=== PATIENT | female | born 1975 | race Caucasian/White ===

== ENCOUNTER → 2017-07-15 | Outpatient (CLI) | payer OTHER ==
--- NOTE | 2017-07-15 16:27 | US ---
EXAMINATION TYPE: US venous doppler duplex LE LT DATE OF EXAM: 07/15/2017 12:24 PM COMPARISON: NONE CLINICAL HISTORY: M79.662 Pain in Left Lower Limb. knee surgery 10 years ago SIDE PERFORMED: left TECHNIQUE: The lower extremity deep venous system is examined utilizing real time linear array sonog josé with graded compression, doppler sonography and color-flow sonography. VESSELS IMAGED: External Iliac Vein (EIV) Common Femoral Vein Deep Femoral Vein Greater Saphenous Vein * Femoral Vein Popliteal Vein Small Saphenous Vein * Proximal Calf Veins (* superficial vessels) Left Leg: Negative for DVT IMPRESSION: 1. Left lower extremity negative for deep venous thrombosis
== END | disposition home or self-care (01) ==
LOC: RADUSWWP 11:47
PROVIDERS: ATTEND Family Medicine
DX: M79.662 Pain in left lower leg (principal)

== ENCOUNTER 2018-04-11 21:26 | Emergency (ER) | payer OTHER ==
[2018-04-11] MEDS ORDERED: HYDROcodone/APAP 5-325MG 1 EACH TAB PO STA (22:21)
--- NOTE | 2018-04-11 22:42 | XR ---
EXAMINATION TYPE: XR foot complete RT DATE OF EXAM: 04/11/2018 COMPARISON: 06/02/2015 HISTORY: Pain TECHNIQUE: 3 views FINDINGS: There is acute oblique fracture of the midshaft of the proximal phalanx of the little toe. There is mild valgus angulation. There is plantar and Achilles calcaneal spur formation. Metatarsals are intact. There is no dislocation. IMPRESSION: Acute fracture of the proximal phalanx of the little toe right foot.
--- NOTE | 2018-04-11 23:29 | ED ---
General Adult HPI - General Chief complaint: Extremity Injury, Lower Stated complaint: Toe Injury Time Seen by Provider: 04/11/18 22:12 Source: patient, RN notes reviewed Mode of arrival: wheelchair Limitations: no limitations - History of Present Illness Initial comments: 43-year-old female presents to the emergency department for a chief complaint of right fifth toe pain times one hour. Patient was walking in her bedroom when she hit her fifth toe on the leg of the bed. Patient states she immediately felt pain and noticed a disfigurement of her right fifth toe. Patient denies any other pain in her foot besides her heel which she states comes and goes chronically due to rheumatoid arthritis. She denies falling or hitting her head. She denies any other leg pain.Patient has no other complaints at this time including shortness of breath, chest pain, abdominal pain, nausea or vomiting, headache, or visual changes. - Related Data Home Medications Medication Instructions Recorded Confirmed Hydrocodone/Acetaminophen [[place] 1 tab PO TID PRN 06/11/14 03/19/16 5-325] Levothyroxine Sodium [Synthroid] 137 mcg PO DAILY 01/20/16 03/19/16 Previous Rx's Medication Instructions Recorded HYDROcodone/APAP 5-325MG [[place] 1 tab PO Q4HR PRN #30 tab 03/21/16 5-325] Hydrocodone/Acetaminophen [[place] 1 - 2 each PO Q4HR PRN #30 tab 03/21/16 5-325] Allergies Allergy/AdvReac Type Severity Reaction Status Date / Time codeine phosphate Allergy Rash/Hives Verified 04/11/18 21:46 [From Tylenol-Codeine #3] meperidine HCl [From Demerol] AdvReac Nausea & Verified 04/11/18 21:46 Vomiting Review of Systems ROS Statement: Those systems with pertinent positive or pertinent negative responses have been documented in the HPI. ROS Other: All systems not noted in ROS Statement are negative. Past Medical History Past Medical History: Cancer, Rheumatoid Arthritis (RA), Thyroid Disorder Additional Past Medical History / Comment(s): thyroid cancer History of Any Multi-Drug Resistant Organisms: None Reported Additional Past Surgical History / Comment(s): thyroidectomy Past Anesthesia/Blood Transfusion Reactions: No Reported Reaction Past Psychological History: No Psychological Hx Reported Smoking Status: Never smoker Past Alcohol Use History: None Reported Past Drug Use History: None Reported - Past Family History Father Family Medical History: Congestive Heart Failure (CHF), Diabetes Mellitus Additional Family Medical History / Comment(s): gallbladder disease General Exam Limitations: no limitations General appearance: alert, in no apparent distress Head exam: Present: atraumatic, normocephalic, normal inspection Eye exam: Present: normal appearance, PERRL, EOMI. Absent: scleral icterus, conjunctival injection, periorbital swelling ENT exam: Present: normal exam, mucous membranes moist Neck exam: Present: normal inspection. Absent: tenderness, meningismus, lymphadenopathy Respiratory exam: Present: normal lung sounds bilaterally. Absent: respiratory distress, wheezes, rales, rhonchi, stridor Cardiovascular Exam: Present: regular rate, normal rhythm, normal heart sounds. Absent: systolic murmur, diastolic murmur, rubs, gallop, clicks Extremities exam: Present: tenderness (Tenderness to the right fifth toe), normal capillary refill (Capillary refill less than 2 seconds in the right fifth digit. Dorsal pedis pulse 2+ in the right foot), other (Patient has notable deformity of right fifth digit as it is laterally displaced.). Absent: full ROM (Patient unable to move right fifth toe at this time), pedal edema, joint swelling Neurological exam: Present: alert, oriented X3, CN II-XII intact Psychiatric exam: Present: normal affect, normal mood Course Vital Signs 04/11/18 21:44 Temperature 98.1 F Pulse Rate 99 Respiratory 18 Rate Blood Pressure 126/77 O2 Sat by Pulse 99 Oximetry Procedures - Orthopedic Fracture Reduction Fracture #1 Consent Obtained: verbal consent Side: right Fracture Reduction Location: toe (Fifth toe) Analgesia: digital block Technique: direct manipulation Post Reduction X-rays Demonstrate: anatomical reduction Post-Reduction Neuro Exam: intact Post-Reduction Vascular Exam: intact Splint Applied: Yes (Luanne tape) Patient Tolerated Procedure: well, no complications Medical Decision Making - Medical Decision Making 43-year-old female presents to the emergency department for chief complaint of right fifth toe injury occurring about an hour ago. Patient accidentally hit her toe against the leg of a bed. Neurovascular intact. Patient unable to move the toe due to pain. Patient was given an [place] in the emergency department which she receives at home. X-ray was ordered which showed Acute fracture of the proximal phalanx of the little toe right foot with mild valgus angulation. There is plantar and Achilles calcaneal spur forming. Digital block was performed with lidocaine and toe was reduced with traction. Neurovascular intact post reduction. X-ray was reviewed by myself and Dr. Carrera and toe is sufficiently reduced. Right fifth toe was luanne taped to the right fourth toe. Patient was given fracture shoe. Patient will continue to do this luanne taping for the next few weeks. Patient was given paper tape. She will follow up with orthopedics in the next few days. Educated on rest ice compress elevate. She will continue her at home medications as well as Motrin. She'll return to the emergency Department if she has any worsening symptoms. Disposition Clinical Impression: Fracture of toe Disposition: HOME SELF-CARE Condition: Good Instructions: Toe Fracture in Children (ED) Additional Instructions: Please keep toe was luanne taped for the next few weeks. Please use fracture shoe until you see orthopedics. Please follow up with orthopedics in one to 2 days. Please return to the emergency department if you have any worsening symptoms. Is patient prescribed a controlled substance at d/c from ED?: No Referrals: Felton Bunch Jr, DO [Primary Care Provider] - 1-2 days Jose Luis Avelar MD [STAFF PHYSICIAN] - 1-2 days Time of Disposition: 23:28
[2018-04-11 23:43] VITALS: BP 132/71; PULSE 72; RESP 16; TEMP 98
--- NOTE | 2018-04-11 23:48 | XR ---
EXAMINATION TYPE: XR toes RT DATE OF EXAM: 04/11/2018 COMPARISON: Today HISTORY: Post reduction TECHNIQUE: 3 views FINDINGS: There is anatomic reduction of the fracture proximal phalanx little toe right foot. IMPRESSION: Anatomic reduction. No complicating process seen.
== END 2018-04-11 23:41 | disposition home or self-care (01) ==
LOC: EC 21:26
DX: S92.511A Displaced fracture of proximal phalanx of right lesser toe(s), initial encounter for closed fracture (principal); M77.31 Calcaneal spur, right foot; M06.9 Rheumatoid arthritis, unspecified; E07.9 Disorder of thyroid, unspecified; Z85.850 Personal history of malignant neoplasm of thyroid; Z79.899 Other long term (current) drug therapy; Z88.5 Allergy status to narcotic agent; W22.03XA Walked into furniture, initial encounter; Y93.01 Activity, walking, marching and hiking; Y92.003 Bedroom of unspecified non-institutional (private) residence as the place of occurrence of the external cause
CPT/HCPCS: 28515; 99283

== ENCOUNTER → 2022-10-02 | Outpatient (CLI) | payer OTHER ==
--- NOTE | 2022-10-02 16:05 | US ---
EXAMINATION TYPE: US soft tissue head/neck DATE OF EXAM: 10/02/2022 COMPARISON: NONE CLINICAL INDICATION: Female, 47 years old with history of E89.0POSTOPERATIVE HYPOTHYROIDISM R49.0 [place] RSE R22.1 R13.10; pt had complete thyroidectomy 15 yrs ago due to 2 cancerous nodule per patient, ne w onset of right mid to upper lateral pain and tenderness, feels like something is affecting swallowi ng TECHNIQUE: Scanned over the thyroid bed and over the patients area of concern. FINDINGS: Within the left thyroid bed there is a homogeneous hypoechoic soft tissue structure measur ing 1.0 x 0.4 x 0.6cm ?residual thyroid tissue vs other? No abnormal lymphadenopathy noted within the area scanned. Scanned over the right lateral mid to upper neck at the patient's focused area of concern, no abnorma lity noted by ultrasound. IMPRESSION: Possible recurrent tissue or neoplasm left thyroid bed. Advise nuclear medicine study to further evaluate.
== END | disposition home or self-care (01) ==
LOC: RADUSWWP 15:04
PROVIDERS: ATTEND Family Medicine
DX: E89.0 Postprocedural hypothyroidism (principal); R49.0 Dysphonia; R22.1 Localized swelling, mass and lump, neck; R13.10 Dysphagia, unspecified
CPT/HCPCS: 76536